=== PATIENT | female | born 1990 | race Caucasian/White ===

== ENCOUNTER 2016-05-26 00:34 | Day surgery (SDC) | payer BC ==
[~2016-05-26] VITALS: Ht 182.9 cm; Wt 86.4 kg
[2016-05-26] VITALS (7 sets, daily range): BP systolic 86–116; BP diastolic 48–63; PULSE 64–76; TEMP 97.1–98.5
[~2016-05-26 00:34] MED LIST: ANTIVERT 25MG25 MG PO; BIRTH CONTROL PILLS; IBU600 MG PO; NO HOME MEDICATIONS; NORCO 325 MG-51 TAB PO; PERCOCET 325 MG1 TA2 PO; PRENATAL1 TA2 PO; PRENATAL1 TA7 PO; TUSS PO; TYLENOL 500MG500 MG PO; VIT B 6; ZITHROMAX 250M250 MG PO; ZOFRAN8 MG PO
[2016-05-26] MEDS ORDERED: LEXAPRO20 MG PO (00:46)
[2016-05-26] MEDS ORDERED: PRENATAL (00:46)
[2016-05-26 01:18] LABS: PH 5 (5-8); URINE APPEARANCE Hazy; URINE BACTERIA None Seen /hpf; URINE BILIRUBIN Negative (NEGATIVE); URINE BLOOD 3+ (NEGATIVE); URINE COLOR Yellow; URINE GLUCOSE Negative (NEGATIVE); URINE KETONE Negative (NEGATIVE); URINE UROBILINOGEN Negative (NEGATIVE); URINE WBC 0-2 /hpf
[2016-05-26 01:31] LABS: BASO # 0.1 (0.0-0.2); BASO % 1.1 % (0.0-2.0); EOS # 0.5 (0.0-0.7); EOS % 6.1 % (0-4.0); GRAN # 3.8 (1.4-6.5); GRAN % 47.1 % (42.2-75.2); HEMATOCRIT 39.1 % (37.0-47.0); HEMOGLOBIN 12.9 g/dl (12.5-16.0); LYMPH # 3.2 (1.2-3.4); LYMPH % 39.4 % (20.0-51.0); MEAN CELL VOLUME 84 fl (80.0-100.0); MEAN CORPUSCULAR HEMOGLOBIN 28 pg (27.0-31.0); MEAN CORPUSCULAR HGB CONC 33 g/dl (33.0-37.0); MEAN PLATELET VOLUME 9.1 fl (7.4-10.4); MONO # 0.5 (0.1-0.6); MONO % 6.2 % (1.7-9.3); PLATELET COUNT 260 K/mm3 (130-400); RED BLOOD COUNT 4.67 M/mm3 (4.10-5.30); REDCELL DISTRIBUTION WIDTH-CV 14.9 % (11.5-14.5)
[2016-05-26] MEDS ORDERED: PERCOCET 325 MG1 TA2 PO (05:05)
[2016-05-26] MEDS ORDERED: IBU600 MG PO (05:05)
== END 2016-05-26 10:45 | disposition home or self-care (01) ==
LOC: COL.ER 00:34 → SDCO 04:21 → SURG 05:50 → SDCO 10:45
PROVIDERS: Emergency Medicine; Nurse Practitioner
DX: O02.1 Missed abortion (principal); F32.9 Major depressive disorder, single episode, unspecified; Z79.899 Other long term (current) drug therapy
CPT/HCPCS: OP; J2405; J2704; J3010; J7030

== ENCOUNTER 2017-01-27 20:05 | Emergency (ER) | payer MEDICAID ==
[~2017-01-27] VITALS: Ht 182.9 cm; Wt 88.6 kg
[~2017-01-27 20:05] MED LIST changes: +LEXAPRO20 MG PO; +PRENATAL
[2017-01-27 20:07] VITALS: BP 116/58; TEMP 98
[2017-01-27] MEDS ORDERED: CLEOCIN HCL300 MG PO (20:41)
[2017-01-27 21:11] VITALS: PULSE 68
== END 2017-01-27 21:11 | disposition home or self-care (01) ==
LOC: COL.ER 20:05
DX: N61.0 Mastitis without abscess (principal); Z98.890 Other specified postprocedural states

== ENCOUNTER → 2017-03-15 | Outpatient (CLI) | payer MEDICAID ==
[~2017-03-15] MED LIST changes: +CLEOCIN HCL300 MG PO
== END ==
LOC: COL.RAD 15:49
DX: R06.02 Shortness of breath (principal); Z3A.26 26 weeks gestation of pregnancy

== ENCOUNTER 2017-06-02 18:54 | Outpatient (CLI) | payer MEDICAID ==
[~2017-06-02] VITALS: Ht 182.9 cm; Wt 104.5 kg
[2017-06-02 19:14] VITALS: BP 119/62; PULSE 90; TEMP 98
== END 2017-06-02 19:50 | disposition home or self-care (01) ==
LOC: LDRO 18:54
DX: O26.893 Other specified pregnancy related conditions, third trimester (principal); Z3A.35 35 weeks gestation of pregnancy

== ENCOUNTER 2017-06-10 14:26 | Outpatient (CLI) | payer MEDICAID ==
[~2017-06-10] VITALS: Ht 182.9 cm; Wt 106.8 kg
[2017-06-10 14:48] VITALS: TEMP 98.2
[2017-06-10] MEDS ORDERED: ZANTAC 7575 MG PO (14:58)
[2017-06-10] MEDS ORDERED: TYLENOL 325MG325 MG PO (14:59)
[2017-06-10 15:00] VITALS: BP 124/63; PULSE 96; TEMP 97.9
== END 2017-06-10 16:15 | disposition home or self-care (01) ==
LOC: LDRO 14:26 → LDR 14:35 → LDRO 16:15
DX: O62.9 Abnormality of forces of labor, unspecified (principal); Z3A.36 36 weeks gestation of pregnancy
CPT/HCPCS: OP

== ENCOUNTER 2017-06-28 05:38 | Inpatient (IN) | payer MEDICAID ==
[~2017-06-28] VITALS: Ht 175.4 cm; Wt 108.2 kg
[2017-06-28] VITALS (20 sets, daily range): BP systolic 96–117; BP diastolic 43–68; PULSE 57–95; TEMP 98.4–99.1
[~2017-06-28 05:38] MED LIST changes: +TYLENOL 325MG325 MG PO; +ZANTAC 7575 MG PO
[2017-06-28 06:37] LABS: BASO % 0.3 % (0.0-2.0); EOS # 0.2 (0.0-0.7); EOS % 1.2 % (0-4.0); GRAN # 8.3 (1.4-6.5); GRAN % 68.8 % (42.2-75.2); HEMOGLOBIN 12.3 g/dl (12.5-16.0); LYMPH # 2.7 (1.2-3.4); LYMPH % 22.1 % (20.0-51.0); MEAN CELL VOLUME 86 fl (80.0-100.0); MEAN CORPUSCULAR HEMOGLOBIN 29 pg (27.0-31.0); MEAN CORPUSCULAR HGB CONC 34 g/dl (33.0-37.0); MEAN PLATELET VOLUME 9.7 fl (7.4-10.4); MONO # 0.9 (0.1-0.6); MONO % 7.2 % (1.7-9.3); PLATELET COUNT 249 K/mm3 (130-400); RED BLOOD COUNT 4.26 M/mm3 (4.10-5.30); REDCELL DISTRIBUTION WIDTH-CV 14.2 % (11.5-14.5)
[2017-06-28 06:38] LABS: HEMATOCRIT 36.5 % (37.0-47.0)
[2017-06-29 02:38] VITALS: BP 108/51; PULSE 67; TEMP 97.7
[2017-06-29 07:18] LABS: HEMATOCRIT 31.4 % (37.0-47.0); HEMOGLOBIN 10.4 g/dl (12.5-16.0)
[2017-06-29 08:03] VITALS: BP 113/68; PULSE 89; TEMP 97.9
[2017-06-29] MEDS ORDERED: IBU600 MG PO (11:36)
[2017-06-29] MEDS ORDERED: PERCOCET 325 MG1 TA2 PO (11:36)
[2017-06-29 16:53] VITALS: BP 117/57; PULSE 85; TEMP 98.3
[2017-06-29 21:10] VITALS: BP 115/62; PULSE 89; TEMP 98.1
[2017-06-30 09:00] VITALS: BP 116/57; PULSE 87; TEMP 97.8
[2017-06-30 16:00] VITALS: BP 107/54; PULSE 73; TEMP 97.6
[2017-06-30 19:00] VITALS: BP 110/53; PULSE 75; TEMP 98.1
[2017-07-01 08:00] VITALS: BP 119/58; PULSE 75; TEMP 97.8
== END 2017-07-01 11:55 | disposition home or self-care (01) | DRG 766 ==
LOC: OB 05:38 → LDR 07:45 → OB 07-01 11:55
PROVIDERS: Obstetrics & Gynecology
PROC: 10D00Z1 Extraction of Products of Conception, Low, Open Approach (ICD-10-PCS; principal; 2017-06-28)
PROC: 0UT70ZZ Resection of Bilateral Fallopian Tubes, Open Approach (ICD-10-PCS; 2017-06-28)
DX: O34.211 Maternal care for low transverse scar from previous cesarean delivery (principal); Z3A.39 39 weeks gestation of pregnancy; Z37.0 Single live birth; O36.63X0 Maternal care for excessive fetal growth, third trimester, not applicable or unspecified; E28.2 Polycystic ovarian syndrome; N80.0 Endometriosis of uterus; Z23 Encounter for immunization; Z22.330 Carrier of Group B streptococcus; Z40.03 Encounter for prophylactic removal of fallopian tube(s); O99.343 Other mental disorders complicating pregnancy, third trimester; F32.89 Other specified depressive episodes; M84.375D Stress fracture, left foot, subsequent encounter for fracture with routine healing
CPT/HCPCS: J0690; J1885; J2270; J2370; J2405; J2590; J2704; J7120

== ENCOUNTER → 2017-07-05 | Outpatient (CLI) | payer MEDICAID | LOC: LAC 12:01 | DX: Z39.1 Encounter for care and examination of lactating mother (principal); Z71.89 Other specified counseling ==

== ENCOUNTER → 2018-07-05 | Outpatient (CLI) | payer BC | LOC: COL.RAD 07:24 | DX: M50.123 Cervical disc disorder at C6-C7 level with radiculopathy (principal); M54.41 Lumbago with sciatica, right side; M54.42 Lumbago with sciatica, left side ==

== ENCOUNTER 2021-11-04 08:27 | Day surgery (SDC) | payer BC ==
[~2021-11-04] VITALS: Ht 182.9 cm; Wt 101.4 kg
[2021-11-04 09:24] VITALS: BP 101/59; PULSE 76; TEMP 97.6
[2021-11-04] MEDS ORDERED: PRILOTC PO (09:28)
[2021-11-04 11:40] VITALS: BP 106/62; PULSE 59; TEMP 97.8
[2021-11-04 11:55] VITALS: BP 97/56; PULSE 72
[2021-11-04 12:10] VITALS: BP 108/61; PULSE 69
--- NOTE | 2021-11-04 12:35 | NUR ---
1140-PT TO BAY. AMBULATED TO CHAIR. AOX3. DENIES ANY N/V. 1215-DR IN ROOM DISCUSSING PROCEDURE. 1225-IV DC'D 1230-DISCHARGE EDUCATION COMPLETED. VERBALIZED UNDERSTANDING. 1235-PT OFF UNIT PER WHEELCHAIR. PT DISCHARGED TO HOME WITH SPOUSE PER PERSONAL VEHICLE.
[2021-11-04 15:02] VITALS: BP 104/50; PULSE 73
== END 2021-11-04 12:35 | disposition home or self-care (01) ==
LOC: SDCO 08:27
DX: D12.4 Benign neoplasm of descending colon (principal); R19.7 Diarrhea, unspecified; K29.50 Unspecified chronic gastritis without bleeding; K64.0 First degree hemorrhoids; Z28.310 Unvaccinated for COVID-19; Z28.9 Immunization not carried out for unspecified reason
CPT/HCPCS: J2704; J7120